=== PATIENT | female | born 1990 | race American Indian/Alaskan Native ===

== ENCOUNTER 2018-09-16 13:18 | Outpatient (CLI) | payer BC ==
[2018-09-16 14:45] VITALS: BP 103/68
== END 2018-09-16 16:32 | disposition home or self-care (01) ==
LOC: TRG 13:18
PROVIDERS: ATTEND Obstetrics & Gynecology
DX: O47.1 False labor at or after 37 completed weeks of gestation (principal); Z3A.39 39 weeks gestation of pregnancy; Z87.891 Personal history of nicotine dependence
CPT/HCPCS: 59025

== ENCOUNTER 2018-09-18 14:56 | Inpatient (IN) | payer BC ==
[2018-09-18] MEDS ORDERED: LACTATED RINGERS 1,000 ML ONE (19:13)
[2018-09-18] MEDS ORDERED: STADOL IV PRN (19:28)
[2018-09-18] MEDS ORDERED: BRETHINE IVP PRN (19:28)
[2018-09-18] MEDS ORDERED: SUBLIMAZE IV PRN (19:28)
[2018-09-18] MEDS ORDERED: BRETHINE SUB-Q PRN (19:28)
[2018-09-18] MEDS ORDERED: MINERAL OIL PO PRN (19:28)
[2018-09-18] MEDS ORDERED: ZOFRAN IV PRN (19:28)
[2018-09-18] MEDS ORDERED: NARCAN 2 MG/2 ML IV PRN (19:45)
[2018-09-18] MEDS ORDERED: TYLENOL ONE (19:47)
--- NOTE | 2018-09-18 19:48 | Anesthesia Day of Surgery ---
Anesthesia Day of Surgery - Day of Surgery Patient Examined: Yes Patient H&P Reviewed: Yes Patient is NPO: Yes Beta Blockers: No Cardiac Clearance: No Pulmonary Clearance: No Ney's Test: N/A
--- NOTE | 2018-09-18 19:48 | Anesthesia Consultation ---
Anesthesia Consult and Med Hx - Airway Anesthetic Teeth Evaluation: Good ROM Head & Neck: Adequate Mental/Hyoid Distance: Adequate Mallampati Class: Class I Intubation Access Assessment: Good - Pulmonary Exam CTA: Yes - Cardiac Exam Cardiac Exam: RRR - Pre-Operative Health Status ASA Pre-Surgery Classification: ASA2 Proposed Anesthetic Plan: Epidural - Pulmonary Hx Asthma: No - Cardiovascular System Hx Hypertension: No - Central Nervous System Hx Seizures: No Hx Psychiatric Problems: No - Endocrine Hx Renal Disease: No Hx Hypothyroidism: No Hx Hyperthyroidism: No - Hematic Hx Anemia: No Hx Sickle Cell Disease: No - Other Systems Hx Alcohol Use: No
[2018-09-18 19:59] LABS: Hematocrit 37.3 % (30.3-42.9); Hemoglobin 12.4 gm/dl (10.1-14.3); Mean Corpuscular HGB Conc 33 % (30-34); Mean Corpuscular Volume 91 fl (79-97); Platelet Count 139 K/mm3 (140-440); Red Cell Distribution Width 14.3 % (13.2-15.2)
[2018-09-18] MEDS ORDERED: LACTATED RINGERS 1,000 ML IV SCH (20:00)
[2018-09-18] MEDS ORDERED: XYLOCAINE 2% INFILTRATI ONE (20:00)
[2018-09-18] MEDS ORDERED: PITOCin/NS 20 UNIT/1000ML DRIP 20 UNITS/1,000 ML BAG IV SCH (20:00)
[2018-09-18] MEDS ORDERED: fentaNYL-BUPIV 2 MCG/ML-0.125% 200 MCG/100 ML BAG EPIDURAL SCH (20:00)
[2018-09-18] MEDS ORDERED: PITOCin/NS 30 UNIT/500ML 30 UNITS/500 ML BAG IV SCH (20:00)
[2018-09-18] MEDS ORDERED: TYLENOL PO PRN (20:16)
--- NOTE | 2018-09-18 20:16 | History and Physical Report ---
History of Present Illness Date of examination: 09/18/18 Date of admission: 09/18/18 18:50 Chief complaint: Labor History of present illness: Past History : 2 Term Births: 0 Premature Births: 0 Living Children: 0 Para: 0 Mult. Births: 0 Prev : 0 Aborta: 1 Elect. Ab: 1 Spont. 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 of genital herpes: no Genetic History Congenital Heart Defect: Mom: no Dad: no Gayr Disease: Mom: no Dad: no Thalassemia Mom: no Dad: no Neural Tube Defect Mom: no Dad: no Down's Syndrome Mom: no Dad: no Burton-Sachs Mom: no Dad: no Sickle Cell Disease/Trait Mom: no Dad: no Hemophilia Mom: no Dad: no Muscular Dystrophy Mom: no Dad: no Cystic Fibrosis Mom: no Dad: no [place] Chorea Mom: no Dad: no Mental Retardation Mom: no Dad: no Fragile X Mom: no Dad: no Other Genetic/Chromosomal Disorder Mom: no Dad: no Child w/other defect Mom: no Dad: no Enviromental Exposures Xray Exposure: no Medication, drug, or alcohol use since LMP: yes Active Medications (reviewed today): PLUS/IRON 27-1 MG ORAL TABLET ( VIT-FE FUMARATE-FA) 1 po q day as directed Current Allergies (reviewed today): No known allergies Past History - Obstetrical History Expected Date of Delivery: 09/23/18 Actual Gestation: 39 Week(s) 2 Day(s) : 2 Induced : 0 Medications and Allergies Allergies Allergy/AdvReac Type Severity Reaction Status Date / Time No Known Allergies Allergy Unverified 09/16/18 14:22 Home Medications Medication Instructions Recorded Confirmed Last Taken Type Preplus Ca-Fe 27 mg-FA 1 mg Tb 1 tab PO DAILY 09/16/18 09/16/18 09/16/18 09:00 History 1 tab Active Meds: Active Medications Acetaminophen (Tylenol) 1,000 mg PO Q4H PRN PRN Reason: For Pain/Fever/Headache Butorphanol Tartrate (Stadol) 2 mg IV Q2H PRN PRN Reason: Pain , Severe (7-10) Ephedrine Sulfate (Ephedrine Sulfate) 10 mg IV Q2M PRN PRN Reason: Hypotension Ephedrine Sulfate (Ephedrine Sulfate) 10 mg IV Q2M PRN PRN Reason: Hypotension Fentanyl (Sublimaze) 100 mcg IV Q2H PRN PRN Reason: Labor Pain Lactated Ringer's (Lactated Ringers) 1,000 mls @ 125 mls/hr IV DIRECT TREMAYNE Oxytocin/Sodium Chloride (Pitocin/Ns 20 Unit/1000ml Drip) 20 units in 1,000 mls @ 125 mls/hr IV DIRECT TREMAYNE Oxytocin/Sodium Chloride (Pitocin/Ns 30 Unit/500ml) 30 units in 500 mls @ 4 mls/hr IV TITR TREMAYNE; Protocol Fentanyl/Bupivacaine/Sodium Chlor (Fentanyl-Bupiv 2 Mcg/Ml-0.125%) 200 mcg in 100 mls @ 12 mls/hr EPIDURAL TITR TREMAYNE; Protocol Mineral Oil (Mineral Oil) 30 ml PO QHS PRN PRN Reason: Constipation Naloxone HCl (Narcan 2 Mg/2 Ml) 0.2 mg IV Q5M PRN PRN Reason: Respiratory sedation Ondansetron HCl (Zofran) 4 mg IV Q8H PRN PRN Reason: Nausea And Vomiting Terbutaline Sulfate (Brethine) 0.25 mg SUB-Q ONCE PRN PRN Reason: Hyperstimulation/Hypertonicity Terbutaline Sulfate (Brethine) 0.25 mg IVP ONCE PRN PRN Reason: Hyperstimulation/Hypertonicity - Vital Signs Vital signs: Vital Signs Temp Pulse Resp BP 98.9 F 100 H 16 116/73 09/18/18 16:00 09/18/18 16:00 09/18/18 16:00 09/18/18 16:00 Temp Pulse Resp BP Pulse Ox 100.0 F H 111 H 18 124/71 98 09/18/18 19:30 09/18/18 20:08 09/18/18 19:30 09/18/18 20:04 09/18/18 20:08 - Physical Exam Breasts: Positive: deferred Lungs: Positive: Normal air movement Abdomen: Positive: soft. Negative: tenderness, guarding Genitourinary (Female): Positive: normal external genitalia, normal perenium Vulva: both: normal Extremities: Positive: normal - Obstetrical FHR: category 2 FHR comments: tachycardia, good variable Cervical Dilatation: 5 Cervical Effacement Percentage: 70 station: -2 per RN Uterine Contraction Pattern: Irregular Results Result Diagrams: 09/18/18 18:50 Abnormal lab results 09/18/18 Range/Units 18:50 WBC 13.0 H (4.5-11.0) K/mm3 Plt Count 139 L (140-440) K/mm3 All other labs normal. Assessment and Plan - Patient Problems (1) 39 weeks gestation of Current Visit: Yes Status: Acute (2) Active labor at term Current Visit: Yes Status: Acute (3) Low grade fever Current Visit: Yes Status: Acute Plan to address problem: No obvious source, no evidence fo chorioamnionitis, she denies cough or dysurua. Will send a urine culture. Tylenol given
[2018-09-18] MEDS ORDERED: MARCAINE 0.25% INFILTRATI ONE (20:29)
[2018-09-18] MEDS ORDERED: TYLENOL PO ONE (21:26)
--- NOTE | 2018-09-18 21:31 | Progress Note ---
Assessment and Plan - Patient Problems (1) 39 weeks gestation of Current Visit: Yes Status: Acute (2) Active labor at term Current Visit: Yes Status: Acute (3) Low grade fever Current Visit: Yes Status: Acute Subjective - Subjective Date of service: 09/18/18 Principal diagnosis: IUP@39 weeks labor Interval history: Past History : 2 Term Births: 0 Premature Births: 0 Living Children: 0 Para: 0 Mult. Births: 0 Prev : 0 Aborta: 1 Elect. Ab: 1 Spont. 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 of genital herpes: no Genetic History Congenital Heart Defect: Mom: no Dad: no Gary Disease: Mom: no Dad: no Thalassemia Mom: no Dad: no Neural Tube Defect Mom: no Dad: no Down's Syndrome Mom: no Dad: no Burton-Sachs Mom: no Dad: no Sickle Cell Disease/Trait Mom: no Dad: no Hemophilia Mom: no Dad: no Muscular Dystrophy Mom: no Dad: no Cystic Fibrosis Mom: no Dad: no [place] Chorea Mom: no Dad: no Mental Retardation Mom: no Dad: no Fragile X Mom: no Dad: no Other Genetic/Chromosomal Disorder Mom: no Dad: no Child w/other defect Mom: no Dad: no Enviromental Exposures Xray Exposure: no Medication, drug, or alcohol use since LMP: yes Active Medications (reviewed today): PLUS/IRON 27-1 MG ORAL TABLET ( VIT-FE FUMARATE-FA) 1 po q day as directed Current Allergies (reviewed today): No known allergies Patient reports: no new complaints Objective - Vital Signs Vital Signs: Vital Signs - 12hr 09/18/18 09/18/18 09/18/18 16:00 16:01 19:30 Temperature 98.9 F 100.0 F H Pulse Rate 100 H 100 H 107 H Respiratory 16 18 Rate Blood Pressure 116/73 Blood Pressure 116/73 146/65 [Left] O2 Sat by Pulse Oximetry 09/18/18 09/18/18 09/18/18 19:42 19:47 19:55 Temperature Pulse Rate 106 H 109 H 116 H Respiratory Rate Blood Pressure 107/60 Blood Pressure [Left] O2 Sat by Pulse 100 64 L 98 Oximetry 09/18/18 09/18/18 09/18/18 20:03 20:04 20:08 Temperature Pulse Rate 116 H 115 H 111 H Respiratory Rate Blood Pressure 124/71 Blood Pressure [Left] O2 Sat by Pulse 97 98 Oximetry 09/18/18 09/18/18 09/18/18 20:20 20:21 20:25 Temperature Pulse Rate 111 H 83 113 H Respiratory Rate Blood Pressure Blood Pressure [Left] O2 Sat by Pulse 99 50 L 98 Oximetry 09/18/18 09/18/18 09/18/18 20:30 20:35 20:37 Temperature Pulse Rate 120 H 113 H 116 H Respiratory Rate Blood Pressure 112/68 Blood Pressure [Left] O2 Sat by Pulse 100 98 Oximetry 09/18/18 09/18/18 09/18/18 20:43 20:46 20:49 Temperature Pulse Rate 111 H 108 H 116 H Respiratory Rate Blood Pressure 108/59 104/55 98/54 Blood Pressure [Left] O2 Sat by Pulse Oximetry 09/18/18 09/18/18 09/18/18 20:52 20:54 20:57 Temperature Pulse Rate 114 H 102 H 116 H Respiratory Rate Blood Pressure 102/57 107/57 104/59 Blood Pressure [Left] O2 Sat by Pulse Oximetry 09/18/18 09/18/18 09/18/18 21:01 21:04 21:07 Temperature Pulse Rate 108 H 112 H 122 H Respiratory Rate Blood Pressure 102/58 92/54 89/51 Blood Pressure [Left] O2 Sat by Pulse Oximetry 09/18/18 09/18/18 09/18/18 21:12 21:14 21:16 Temperature 98.5 F Pulse Rate 102 H 102 H 103 H Respiratory 20 Rate Blood Pressure 104/58 113/60 Blood Pressure 104/58 [Left] O2 Sat by Pulse 100 Oximetry 09/18/18 09/18/18 09/18/18 21:17 21:19 21:22 Temperature Pulse Rate 105 H 118 H 114 H Respiratory Rate Blood Pressure 102/58 108/60 Blood Pressure [Left] O2 Sat by Pulse 100 100 Oximetry 09/18/18 21:25 Temperature Pulse Rate 121 H Respiratory Rate Blood Pressure 110/59 Blood Pressure [Left] O2 Sat by Pulse Oximetry - Exam Breasts: deferred Lungs: Normal air movement Abdomen: Present: soft. Absent: tenderness Vulva: both: normal Uterus: Present: fundal height above umbilicus. Absent: tenderness FHR: category 2 Uterine Contraction Monitor Mode: Internal (after procedure explained and questions answered, AROM clear copious fluid, no odor, IUPC placed w/o difficulty) Cervical Dilatation: 6 Cervical Effacement Percentage: 70 station: -1 Uterine Contraction Pattern: Irregular Extremities: normal - Labs Labs: Abnormal Labs 09/18/18 18:50 WBC 13.0 H Plt Count 139 L Laboratory Results - last 24 hr 09/18/18 18:50 WBC 13.0 H RBC 4.10 Hgb 12.4 Hct 37.3 MCV 91 MCH 30 MCHC 33 RDW 14.3 Plt Count 139 L
--- NOTE | 2018-09-18 23:30 | Progress Note ---
Assessment and Plan - Patient Problems (1) 39 weeks gestation of Current Visit: Yes Status: Acute (2) Active labor at term Current Visit: Yes Status: Acute (3) Low grade fever Current Visit: Yes Status: Acute Subjective - Subjective Date of service: 09/18/18 Principal diagnosis: IUP@39 weeks labor Interval history: Past History : 2 Term Births: 0 Premature Births: 0 Living Children: 0 Para: 0 Mult. Births: 0 Prev : 0 Aborta: 1 Elect. Ab: 1 Spont. 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 of genital herpes: no Genetic History Congenital Heart Defect: Mom: no Dad: no Gary Disease: Mom: no Dad: no Thalassemia Mom: no Dad: no Neural Tube Defect Mom: no Dad: no Down's Syndrome Mom: no Dad: no Burton-Sachs Mom: no Dad: no Sickle Cell Disease/Trait Mom: no Dad: no Hemophilia Mom: no Dad: no Muscular Dystrophy Mom: no Dad: no Cystic Fibrosis Mom: no Dad: no [place] Chorea Mom: no Dad: no Mental Retardation Mom: no Dad: no Fragile X Mom: no Dad: no Other Genetic/Chromosomal Disorder Mom: no Dad: no Child w/other defect Mom: no Dad: no Enviromental Exposures Xray Exposure: no Medication, drug, or alcohol use since LMP: yes Active Medications (reviewed today): PLUS/IRON 27-1 MG ORAL TABLET ( VIT-FE FUMARATE-FA) 1 po q day as directed Current Allergies (reviewed today): No known allergies Patient reports: no new complaints Objective - Vital Signs Vital Signs: Vital Signs - 12hr 09/18/18 09/18/18 09/18/18 16:00 16:01 19:30 Temperature 98.9 F 100.0 F H Pulse Rate 100 H 100 H 107 H Respiratory 16 18 Rate Blood Pressure 116/73 Blood Pressure 116/73 146/65 [Left] O2 Sat by Pulse Oximetry 09/18/18 09/18/18 09/18/18 19:42 19:47 19:55 Temperature Pulse Rate 106 H 109 H 116 H Respiratory Rate Blood Pressure 107/60 Blood Pressure [Left] O2 Sat by Pulse 100 64 L 98 Oximetry 09/18/18 09/18/18 09/18/18 20:03 20:04 20:08 Temperature Pulse Rate 116 H 115 H 111 H Respiratory Rate Blood Pressure 124/71 Blood Pressure [Left] O2 Sat by Pulse 97 98 Oximetry 09/18/18 09/18/18 09/18/18 20:20 20:21 20:25 Temperature Pulse Rate 111 H 83 113 H Respiratory Rate Blood Pressure Blood Pressure [Left] O2 Sat by Pulse 99 50 L 98 Oximetry 09/18/18 09/18/18 09/18/18 20:30 20:35 20:37 Temperature Pulse Rate 120 H 113 H 116 H Respiratory Rate Blood Pressure 112/68 Blood Pressure [Left] O2 Sat by Pulse 100 98 Oximetry 09/18/18 09/18/18 09/18/18 20:43 20:46 20:49 Temperature Pulse Rate 111 H 108 H 116 H Respiratory Rate Blood Pressure 108/59 104/55 98/54 Blood Pressure [Left] O2 Sat by Pulse Oximetry 09/18/18 09/18/18 09/18/18 20:52 20:54 20:57 Temperature Pulse Rate 114 H 102 H 116 H Respiratory Rate Blood Pressure 102/57 107/57 104/59 Blood Pressure [Left] O2 Sat by Pulse Oximetry 09/18/18 09/18/18 09/18/18 21:01 21:04 21:07 Temperature Pulse Rate 108 H 112 H 122 H Respiratory Rate Blood Pressure 102/58 92/54 89/51 Blood Pressure [Left] O2 Sat by Pulse Oximetry 09/18/18 09/18/18 09/18/18 21:12 21:14 21:16 Temperature 98.5 F Pulse Rate 102 H 102 H 103 H Respiratory 20 Rate Blood Pressure 104/58 113/60 Blood Pressure 104/58 [Left] O2 Sat by Pulse 100 Oximetry 09/18/18 09/18/18 09/18/18 21:17 21:19 21:22 Temperature Pulse Rate 105 H 118 H 114 H Respiratory Rate Blood Pressure 102/58 108/60 Blood Pressure [Left] O2 Sat by Pulse 100 100 Oximetry 09/18/18 09/18/18 09/18/18 21:25 21:27 21:28 Temperature Pulse Rate 121 H 111 H 110 H Respiratory Rate Blood Pressure 110/59 106/57 Blood Pressure [Left] O2 Sat by Pulse 100 Oximetry 09/18/18 09/18/18 09/18/18 21:31 21:32 21:34 Temperature Pulse Rate 101 H 103 H 99 H Respiratory Rate Blood Pressure 94/55 104/68 Blood Pressure [Left] O2 Sat by Pulse 100 Oximetry 09/18/18 09/18/18 09/18/18 21:35 21:37 21:42 Temperature Pulse Rate 105 H 117 H 94 H Respiratory Rate Blood Pressure 109/57 Blood Pressure [Left] O2 Sat by Pulse 83 L 100 100 Oximetry 09/18/18 09/18/18 09/18/18 21:46 21:47 21:52 Temperature Pulse Rate 106 H 95 H 112 H Respiratory Rate Blood Pressure Blood Pressure [Left] O2 Sat by Pulse 91 100 93 Oximetry 09/18/18 09/18/18 09/18/18 21:53 21:57 22:00 Temperature Pulse Rate 113 H 102 H 98 H Respiratory Rate Blood Pressure 94/53 Blood Pressure [Left] O2 Sat by Pulse 97 59 L Oximetry 09/18/18 09/18/18 09/18/18 22:02 22:07 22:11 Temperature Pulse Rate 97 H 99 H 97 H Respiratory Rate Blood Pressure 100/58 Blood Pressure [Left] O2 Sat by Pulse 98 99 93 Oximetry 09/18/18 09/18/18 09/18/18 22:12 22:18 22:23 Temperature Pulse Rate 102 H 102 H Respiratory 18 Rate Blood Pressure 100/58 112/64 Blood Pressure [Left] O2 Sat by Pulse 90 Oximetry 09/18/18 09/18/18 09/18/18 22:37 22:52 23:08 Temperature Pulse Rate 111 H 127 H Respiratory Rate Blood Pressure 104/63 104/67 93/69 Blood Pressure [Left] O2 Sat by Pulse Oximetry 09/18/18 23:23 Temperature Pulse Rate 122 H Respiratory Rate Blood Pressure 92/57 Blood Pressure [Left] O2 Sat by Pulse Oximetry - Exam Breasts: deferred Lungs: Normal air movement Abdomen: Present: soft. Absent: tenderness Vulva: both: normal Uterus: Present: fundal height above umbilicus. Absent: tenderness FHR: category 1 Uterine Contraction Monitor Mode: Internal (IUPC was displaced, another one was inserted w/o difficulty) Cervical Dilatation: 7 Cervical Effacement Percentage: 90 station: -1 Uterine Contraction Pattern: Regular - Labs Labs: Abnormal Labs 09/18/18 18:50 WBC 13.0 H Plt Count 139 L Laboratory Results - last 24 hr 09/18/18 09/18/18 18:50 18:50 WBC 13.0 H RBC 4.10 Hgb 12.4 Hct 37.3 MCV 91 MCH 30 MCHC 33 RDW 14.3 Plt Count 139 L Blood Type O POSITIVE Antibody Screen Negative
--- NOTE | 2018-09-19 00:17 | Progress Note ---
Assessment and Plan Start pushing - Patient Problems (1) 39 weeks gestation of Current Visit: Yes Status: Acute (2) Active labor at term Current Visit: Yes Status: Acute (3) Low grade fever Current Visit: Yes Status: Acute Subjective - Subjective Date of service: 09/19/18 Principal diagnosis: IUP@39 weeks labor Patient reports: no new complaints Objective - Vital Signs Vital Signs: Vital Signs - 12hr 09/18/18 09/18/18 09/18/18 16:00 16:01 19:30 Temperature 98.9 F 100.0 F H Pulse Rate 100 H 100 H 107 H Respiratory 16 18 Rate Blood Pressure 116/73 Blood Pressure 116/73 146/65 [Left] O2 Sat by Pulse Oximetry 09/18/18 09/18/18 09/18/18 19:42 19:47 19:55 Temperature Pulse Rate 106 H 109 H 116 H Respiratory Rate Blood Pressure 107/60 Blood Pressure [Left] O2 Sat by Pulse 100 64 L 98 Oximetry 09/18/18 09/18/18 09/18/18 20:03 20:04 20:08 Temperature Pulse Rate 116 H 115 H 111 H Respiratory Rate Blood Pressure 124/71 Blood Pressure [Left] O2 Sat by Pulse 97 98 Oximetry 09/18/18 09/18/18 09/18/18 20:20 20:21 20:25 Temperature Pulse Rate 111 H 83 113 H Respiratory Rate Blood Pressure Blood Pressure [Left] O2 Sat by Pulse 99 50 L 98 Oximetry 09/18/18 09/18/18 09/18/18 20:30 20:35 20:37 Temperature Pulse Rate 120 H 113 H 116 H Respiratory Rate Blood Pressure 112/68 Blood Pressure [Left] O2 Sat by Pulse 100 98 Oximetry 09/18/18 09/18/18 09/18/18 20:43 20:46 20:49 Temperature Pulse Rate 111 H 108 H 116 H Respiratory Rate Blood Pressure 108/59 104/55 98/54 Blood Pressure [Left] O2 Sat by Pulse Oximetry 09/18/18 09/18/18 09/18/18 20:52 20:54 20:57 Temperature Pulse Rate 114 H 102 H 116 H Respiratory Rate Blood Pressure 102/57 107/57 104/59 Blood Pressure [Left] O2 Sat by Pulse Oximetry 09/18/18 09/18/18 09/18/18 21:01 21:04 21:07 Temperature Pulse Rate 108 H 112 H 122 H Respiratory Rate Blood Pressure 102/58 92/54 89/51 Blood Pressure [Left] O2 Sat by Pulse Oximetry 09/18/18 09/18/18 09/18/18 21:12 21:14 21:16 Temperature 98.5 F Pulse Rate 102 H 102 H 103 H Respiratory 20 Rate Blood Pressure 104/58 113/60 Blood Pressure 104/58 [Left] O2 Sat by Pulse 100 Oximetry 09/18/18 09/18/18 09/18/18 21:17 21:19 21:22 Temperature Pulse Rate 105 H 118 H 114 H Respiratory Rate Blood Pressure 102/58 108/60 Blood Pressure [Left] O2 Sat by Pulse 100 100 Oximetry 09/18/18 09/18/18 09/18/18 21:25 21:27 21:28 Temperature Pulse Rate 121 H 111 H 110 H Respiratory Rate Blood Pressure 110/59 106/57 Blood Pressure [Left] O2 Sat by Pulse 100 Oximetry 09/18/18 09/18/18 09/18/18 21:31 21:32 21:34 Temperature Pulse Rate 101 H 103 H 99 H Respiratory Rate Blood Pressure 94/55 104/68 Blood Pressure [Left] O2 Sat by Pulse 100 Oximetry 09/18/18 09/18/18 09/18/18 21:35 21:37 21:42 Temperature Pulse Rate 105 H 117 H 94 H Respiratory Rate Blood Pressure 109/57 Blood Pressure [Left] O2 Sat by Pulse 83 L 100 100 Oximetry 09/18/18 09/18/18 09/18/18 21:46 21:47 21:52 Temperature Pulse Rate 106 H 95 H 112 H Respiratory Rate Blood Pressure Blood Pressure [Left] O2 Sat by Pulse 91 100 93 Oximetry 09/18/18 09/18/18 09/18/18 21:53 21:57 22:00 Temperature Pulse Rate 113 H 102 H 98 H Respiratory Rate Blood Pressure 94/53 Blood Pressure [Left] O2 Sat by Pulse 97 59 L Oximetry 09/18/18 09/18/18 09/18/18 22:02 22:07 22:11 Temperature Pulse Rate 97 H 99 H 97 H Respiratory Rate Blood Pressure 100/58 Blood Pressure [Left] O2 Sat by Pulse 98 99 93 Oximetry 09/18/18 09/18/18 09/18/18 22:12 22:18 22:23 Temperature Pulse Rate 102 H 102 H Respiratory 18 Rate Blood Pressure 100/58 112/64 Blood Pressure [Left] O2 Sat by Pulse 90 Oximetry 09/18/18 09/18/18 09/18/18 22:37 22:52 23:08 Temperature Pulse Rate 111 H 127 H Respiratory Rate Blood Pressure 104/63 104/67 93/69 Blood Pressure [Left] O2 Sat by Pulse Oximetry 09/18/18 09/18/18 09/18/18 23:23 23:38 23:40 Temperature Pulse Rate 122 H 102 H 101 H Respiratory Rate Blood Pressure 92/57 109/64 Blood Pressure [Left] O2 Sat by Pulse 98 Oximetry 09/18/18 09/18/18 09/18/18 23:45 23:50 23:54 Temperature Pulse Rate 100 H 99 H 103 H Respiratory Rate Blood Pressure 103/61 Blood Pressure [Left] O2 Sat by Pulse 99 100 Oximetry 09/18/18 09/19/18 09/19/18 23:55 00:00 00:05 Temperature Pulse Rate 122 H 105 H 101 H Respiratory Rate Blood Pressure Blood Pressure [Left] O2 Sat by Pulse 99 98 98 Oximetry 09/19/18 09/19/18 00:08 00:10 Temperature Pulse Rate 103 H 103 H Respiratory Rate Blood Pressure 95/53 Blood Pressure [Left] O2 Sat by Pulse 98 Oximetry - Exam FHR: category 2 Uterine Contraction Monitor Mode: Internal Cervical Dilatation: 10 Cervical Effacement Percentage: 100 station: +2 Uterine Contraction Pattern: Regular - Labs Labs: Abnormal Labs 09/18/18 18:50 WBC 13.0 H Plt Count 139 L Laboratory Results - last 24 hr 09/18/18 09/18/18 18:50 18:50 WBC 13.0 H RBC 4.10 Hgb 12.4 Hct 37.3 MCV 91 MCH 30 MCHC 33 RDW 14.3 Plt Count 139 L Blood Type O POSITIVE Antibody Screen Negative
--- NOTE | 2018-09-19 02:21 | Procedure Note ---
OB Delivery Note - Delivery Date of Delivery: 09/19/18 Surgeon: LORI REID Estimated blood loss: 300cc - Vaginal Delivery presentation: vertex Delivery position: OA Intrapartum events: none Delivery induction: AROM Delivery augmentation: pitocin Delivery monitor: external FHT, external uterine, internal uterine Route of delivery: Delivery placenta: spontaneous (intact) Episiotomy: none Delivery laceration: 2nd degree (Usual fashion) Delivery repair: vicryl Anesthesia: epidural - A at 1 minute: 8 at 5 minutes: 9 Gender: Female (7#2oz)
[2018-09-19] MEDS ORDERED: ZOFRAN IV PRN (04:01)
[2018-09-19] MEDS ORDERED: MILK OF MAGNESIA PO PRN (04:01)
[2018-09-19] MEDS ORDERED: LANSINOH TP PRN (04:01)
[2018-09-19] MEDS ORDERED: BENADRYL PO PRN (04:01)
[2018-09-19] MEDS ORDERED: TYLENOL PO PRN (04:01)
[2018-09-19] MEDS ORDERED: TUCKS PAD TP PRN (04:01)
[2018-09-19] MEDS ORDERED: PHENERGAN PO PRN (04:01)
[2018-09-19] MEDS ORDERED: DULCOLAX PR PRN (04:01)
[2018-09-19] MEDS ORDERED: PHENERGAN PR PRN (04:01)
[2018-09-19] MEDS ORDERED: PITOCin/NS 20 UNIT/1000ML DRIP 20 UNITS/1,000 ML BAG IV SCH (05:00)
[2018-09-19] MEDS ORDERED: SODIUM CHLORIDE FLUSH SYRINGE 10 ML IV NR (05:00)
[2018-09-19] MEDS ORDERED: DERMOPLAST TP PRN (05:04)
[2018-09-19] MEDS: IBUPROFEN PO SCH ×4 (05:58→21:51)
[2018-09-19 15:12] LABS: Hematocrit 29.2 % (30.3-42.9); Hemoglobin 9.8 gm/dl (10.1-14.3)
[2018-09-20] MEDS ORDERED: BOOSTRIX IM ONE (06:00)
--- NOTE | 2018-09-20 06:35 | Discharge Summary ---
Providers - Providers Date of Admission: 09/18/18 18:50 Date of discharge: 09/20/18 (pt agrees withd/c) Attending physician: LORI REID 09/19/18 04:02 Consult to [facility]cher [CONS] Routine Reason For Exam: assistance with , SNS Primary care physician: LORI REID Hospitalization Reason for admission: active labor Delivery: Episiotomy: none Laceration: 2nd degree Incision: normal, dry, intact Other procedures: none complications: none Discharge diagnosis: IUP at term delivered [place] baby: female Hospital course: uncomplicated delivery Pt resting no c/o voiced VSS FF below umb Lochia small Perineum intact H&H 03/13 drop r/t blood loss from delivery Asymptomatic Doing well s/p vag delivery P: d/c today with instructions RTO 4 weeks PP care Condition at discharge: Good Disposition: DC-01 TO HOME OR SELFCARE - Discharge Diagnoses (1) Normal spontaneous vaginal delivery Status: Acute Plan - Provider Discharge Summary Activity: routine, no sex for 6 weeks, no heavy lifting 4 weeks, no strenuous exercise Diet: routine Instructions: routine Additional instructions: [] Smoking cessation referral if applicable(refer to patient education folder for contact #) [] Refer to [facility] Booklet Call your doctor immediately for: * Fever > 100.5 * Heavy vaginal bleeding ( >1 pad per hour) * Severe persistent headache * Shortness of breath * Reddened, hot, painful area to leg or breast * Drainage or odor from incision. * Keep incision clean and dry at all times and follow doctor's instructions regarding bathing/showering - Follow up plan Follow up: LORI REID MD [Primary Care Provider] - 10/19/18 (Congratulation Please call [phone] to schedule your visit in 4 weeks. Motrin/ibuprofen for cramping/pain. Call with any concerns.)
[2018-09-20] MEDS: IBUPROFEN PO SCH ×2 (07:21→18:42)
[2018-09-20 16:24] VITALS: BP 101/63
== END 2018-09-20 19:50 | disposition home or self-care (01) | DRG 806 ==
LOC: TRG 14:56 → LD 18:50 → OB 09-19 04:21
PROVIDERS: ADMIT Obstetrics & Gynecology; ATTEND Obstetrics & Gynecology
PROC: 10907ZC Drainage of Amniotic Fluid, Therapeutic from Products of Conception, Via Natural or Artificial Opening (ICD-10-PCS; principal; 2018-09-19)
PROC: 10E0XZZ Delivery of Products of Conception, External Approach (ICD-10-PCS; 2018-09-19)
PROC: 0KQM0ZZ Repair Perineum Muscle, Open Approach (ICD-10-PCS; 2018-09-19)
PROC: 3E0R3BZ Introduction of Anesthetic Agent into Spinal Canal, Percutaneous Approach (ICD-10-PCS; 2018-09-19)
PROC: 00HU33Z Insertion of Infusion Device into Spinal Canal, Percutaneous Approach (ICD-10-PCS; 2018-09-19)
DX: O99.334 Smoking (tobacco) complicating childbirth (principal); O75.2 Pyrexia during labor, not elsewhere classified; Z37.0 Single live birth; F17.200 Nicotine dependence, unspecified, uncomplicated; O99.314 Alcohol use complicating childbirth; O70.1 Second degree perineal laceration during delivery; Z3A.39 39 weeks gestation of pregnancy; Z82.49 Family history of ischemic heart disease and other diseases of the circulatory system; Z83.3 Family history of diabetes mellitus; Z37.9 Outcome of delivery, unspecified; Z71.6 Tobacco abuse counseling; Z72.89 Other problems related to lifestyle
CPT/HCPCS: 36415; 85014; 85018; 85027; 86592; 86850; 86900; 86901; 87086; G0378; A6250; J2590; J7120